=== PATIENT | male | born 1970 | race Two or more races ===

== ENCOUNTER 2024-11-19 13:42 | Outpatient (AMB) | payer MEDICAID, SELFPAY ==
--- NOTE | 2024-11-19 14:07 | GSCOFFNT_ITS ---
Vital Signs - [facility] 11/19/24 14:15 Height 1.68 m Height Method Measured Weight 83.688 kg Weight Measurement Method Standing Scale BMI 29.7 BP 129/76 Blood Pressure Source Automatic Cuff Blood Pressure Location Left Upper Arm Position Sitting Respiration 20 Pulse 52 L Pulse Source Monitor Temp 97.5 F Temp Source Temporal Artery Scan Pulse Oximetry (%) 97 Oxygen Delivery Method Room Air Med/Allergies Allergies & Medications Allergies No Known Allergies Allergy (Verified 11/19/24 14:20) Medication Reconciliation No Known Home Medications 11/19/24 [History Confirmed 11/19/24] MA Intake Visit Data Collection New Patient or Established: Established Patient (seen at [facility] within 3 years) Seen by Clinical Staff ONLY (RN/MA): No Pain Present Currently: No Pain Scale Used: Green-Dhaliwal/Numerical Wafer Fabrication Technician Required: Yes PCP or OBGYN visit in last 3 months: Yes Hx Now: No Do You Feel Safe at Home: Yes Authorities Contacted: N/A Smoking Status Smoking Status: Never smoker Immunization / Flu Flu Vaccine in the Last 12 Months: Yes Flu Vaccine Exclusion Criteria: Already Received Past Medical History Social History SMOKING STATUS: Smoking status: Never smoker HPI HPI Narrative 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 Pt reports he had been having discomfort related to his hemorrhoids earlier this year and for the past 2 years, but for the past few months he has not had any symptoms. He initially was having burning but he states he improved his diet and now he has no palpable bulge at the area, no bleeding or itching. He has been using anusol cream and denies any straining or diarrhea. Pt has not had a colonoscopy PMH: HLD, anxiety PSHx: Right foot surgery Meds: Anusol PRN Allergies: NKDA Family hx: No known CRC ROS Review of Systems Systems Reviewed: All systems reviewed, normal except as documented Objective/Exam General General Appearance: alert, cooperative and well groomed Resp Respiratory exam: Absent respiratory distress Rectal Rectal exam: Present normal inspection, normal rectal tone and other (no external hemorrhoids, normal SUSU and no internal hemorrhoids seen on anoscopy) Assessment & Plan Diagnosis / Problem List (1) Hemorrhoids: Status: Acute Assessment & Plan: 54M with HLD, anxiety referred for hemorrhoids. Though pt has a history of symptomatic hemorrhoids, he has not had symptoms for the past 3 months and on exam today no hemorrhoids were appreciated. I recommended he continue his current bowel regimen and also recommended screening colonoscopy, enumerating risks of bleeding and perforation requiring emergency surgery as well as the potential benefit of preventing CA. Pt would like to confer with his PCP and will reach out with any concerns or questions and/or to schedule colonoscopy Office Procedures GNS Level of Care Nursing/Assessment Patient Status: Established Patient Nursing Assessment/Reassesment: Medication Reconciliation, Update PMH in EMR and Vital Signs Coordination of Care: Complex Care and Chronic Disease 1-5, Education Complex Pt/Fam, Consent,records obtained, informed consent, Results/Orders obtained and Staff clarify orders Special Needs: Language special needs Established Patient Charge Established Patient Point Assignment: 95 Established Patient Point Charge: EP Level 3 (80-115) Patient Portal Questionaires Social History Tobacco History Smoking Status: Never smoker Domestic Abuse History Do You Feel Safe at Home: Yes Review of Systems Report any current symptoms Only answer those that you have currently: Past Medical History Past Medical History Have you ever been diagnosed with any of the following:
[2024-11-19 14:15] VITALS: BP 129/76; PULSE 52; RESP 20; TEMP 36.4; O2SAT 97; BMI 29.7
== END 2024-11-19 15:07 | disposition home or self-care (01) ==
PROVIDERS: PCP Physician Assistant; Referring Provider Physician Assistant; Supervising Provider Surgery; Visit Provider Surgery
DX: K64.9 Unspecified hemorrhoids (principal)
CPT/HCPCS: 99213; G0463